=== PATIENT | male | born 1955 | race Caucasian/White ===

== ENCOUNTER 2020-09-24 14:17 | Emergency (ER) | payer BC ==
[2020-09-24 14:30] VITALS: BP 135/69
[2020-09-24] MEDS ORDERED: ASPIRIN CHEW 81 MG TABLET PO STA (14:39)
--- NOTE | 2020-09-24 14:46 | XRAY Report ---
PROCEDURE: Chest 1 View X-Ray INDICATIONS: Chest pain TECHNIQUE: One view of the chest was acquired. COMPARISON: None. FINDINGS: Surgical changes and devices: None. Lungs and pleura: No pleural effusions or pneumothorax. Lungs are clear. Mediastinum: Mediastinal contours appear normal. Heart size is normal. Bones and chest wall: No suspicious bony lesions. Overlying soft tissues appear unremarkable. IMPRESSION: No acute cardiopulmonary pathology. Reviewed by: Luisito Heredia MD on 09/24/2020 2:45 PM PDT Approved by: Luisito Heredia MD on 09/24/2020 2:45 PM PDT Station ID: [id number]
--- NOTE | 2020-09-24 14:49 | ED Physician Documentation ---
PD HPI CHEST PAIN - Stated complaint Stated Complaint: CHEST DISCOMFORT,JAW PX - Chief complaint Chief Complaint: Cardiac - History obtained from History obtained from: Patient - Additional information Additional information: 65-year-old gentleman with no known history of heart heart problems save for a "moderate" calcium score a few years ago. For the last 5 days has had fairly constant right upper chest pain "like a gas bubble." That does not seem to change with positioning and it does get slightly better albeit very briefly with drinking something cold. Today he noticed what he thought was very mild jaw pain "like a toothache." There is no associated trouble breathing, pedal edema, calf pain, sweats, nausea, dizziness. Review of Systems Ten Systems: 10 systems reviewed and negative Constitutional: denies: Chills, Fatigue Ears: denies: Loss of hearing, Ear pain Nose: denies: Rhinorrhea / runny nose, Congestion PD PAST MEDICAL HISTORY - Present Medications Home Medications: Ambulatory Orders Medication Instructions Recorded Confirmed Ferrous Sulfate [Slow Fe] 142 mg PO BID 09/24/20 09/24/20 Finasteride [Proscar] 5 mg PO DAILY 09/24/20 09/24/20 Ibuprofen [Motrin] 1 tablet PO Q8H PRN 09/24/20 09/24/20 Levocetirizine Dihydrochloride 5 mg PO DAILY 09/24/20 09/24/20 [Xyzal] Lisinopril [Zestril] 2.5 mg PO DAILY 09/24/20 09/24/20 Montelukast [Singulair] 10 mg PO QPM 09/24/20 09/24/20 Pnv No.95/Ferrous Fum/Folic AC 1 each PO DAILY 09/24/20 09/24/20 [ Caplet] Tamsulosin HCl [Flomax] 0.4 mg PO DAILY 09/24/20 09/24/20 Vit A/Vit C/Vit E/Zinc/Copper 1 each PO BID 09/24/20 09/24/20 [Preservision Areds Softgel] Zolpidem Tartrate [Ambien] 10 mg PO DAILY PM 09/24/20 09/24/20 - Allergies Allergies/Adverse Reactions: Allergies Allergy/AdvReac Type Severity Reaction Status Date / Time No Known Drug Allergies Allergy Verified 09/24/20 14:30 PD ED PE NORMAL - Vitals Vital signs reviewed: Yes - General General: Alert and oriented X 3, No acute distress - HEENT HEENT: PERRL, EOMI - Neck Neck: Supple, no meningeal sign, No bony TTP - Cardiac Cardiac: RRR, No murmur - Respiratory Respiratory: No respiratory distress, Clear bilaterally - Abdomen Abdomen: Normal bowel sounds, Soft, Non tender - Derm Derm: Warm and dry - Extremities Extremities: No edema, No calf tenderness / cord, Other (Right arm is absence from remote trauma) - Neuro Neuro: Alert and oriented X 3, Normal speech Results - Vitals Vitals: Vital Signs - 24 hr 09/24/20 14:27 Temperature 36.4 C L Heart Rate 54 L Respiratory 16 Rate Blood Pressure 135/69 H O2 Saturation 99 Oxygen O2 Source Room air - EKG (time done) 1422 Rate: Rate (enter#) (48) Rhythm: Sinus bradycardia [place]: Normal Intervals: Normal SD QRS: Normal Ischemia: Non specific changes (Very mild anterior ST elevation, submillimeter.). No: ST depression Computer interpretation: Agree with computer 1448 Rate: Rate (enter#) (48) Rhythm: Sinus bradycardia [place]: Normal Intervals: Normal SD QRS: Normal Ischemia: ST elevation c/w ischemia (anterior) Computer interpretation: Agree with computer - Labs Labs: Laboratory Tests 09/24/20 14:45 Nasal Adenovirus (PCR) NOT DETECTED Nasal B. parapertussis DNA (PCR) NOT DETECTED Nasal Coronavir 229E PCR NOT DETECTED Nasal Coronavir HKU1 PCR NOT DETECTED Nasal Coronavir NL63 PCR NOT DETECTED Nasal Coronavir OC43 PCR NOT DETECTED Nasal Enterovir/Rhinovir PCR NOT DETECTED Nasal Influenza B PCR NOT DETECTED Nasal Influenza A PCR NOT DETECTED Nasal Parainfluen 1 PCR NOT DETECTED Nasal Parainfluen 2 PCR NOT DETECTED Nasal Parainfluen 3 PCR NOT DETECTED Nasal Parainfluen 4 PCR NOT DETECTED Nasal RSV (PCR) NOT DETECTED Nasal B.pertussis DNA PCR NOT DETECTED Nasal C.pneumoniae (PCR) NOT DETECTED Dominik Human Metapneumo PCR NOT DETECTED Nasal M.pneumoniae (PCR) NOT DETECTED Nasal SARS-CoV-2 (PCR) NOT DETECTED - Rads (name of study) 1v cxr Radiology: EMP read contemporaneously (NAD) Procedures - Central Line Central Line Preparation: Consent Obtained, Ultrasound used Central line location: Left IJ Central line type: Single lumen (18g angiocath) Central line aftercare: Pt tolerated well PD MEDICAL DECISION MAKING - ED course ED course: 65-year-old gentleman presents with chest pain that is mildly atypical. His initial EKG was nondiagnostic but somewhat concerning to me. Repeat EKG was done immediately after my first evaluation and shows significant dynamic changes that are concerning for developing anterior STEMI. Beta-blockade was held given his mild bradycardia. He was administered aspirin and heparin IV push 5000 units. STEMI code was called at the time of the second EKG, 1448. [facility] was activated and the patient was accepted by Dr. De Anda to [facility]. She asked me was also paged out and speak with the on-call senior informatica developer, Dr. Recinos and they were paged. I did also speak with Dr. Recinos at 3 PM; He is aware of the case and the ETA. Transport was delayed significantly by lack of IV access. Multiple nurses and flight nurses had tried and failed and they came to get me. I looked with ultrasound and then tried an EJ but eventually had to place a quick central line with a regular IV to expedite transport. - Critical Care Time(min): 40 Time Includes: Direct patient care, Review records, Reassess patient, Document care, Coordinate care, Medical consult, Family consult for tx dec Data interpretation: Labs, Pulse ox, CXR Procedures excluded from critical care time: EKG Departure - Departure Disposition: 02 Transfer Acute Care Hosp Clinical Impression: ST elevation myocardial infarction (STEMI) of anterior wall Condition: Critical Discharge Date/Time: 09/24/20 15:47
[2020-09-24] MEDS ORDERED: HEPARIN 5,000 UNIT/ML VIAL IVP STA (14:55)
[2020-09-24] MEDS ORDERED: NITROGLYCERIN 2% PASTE TOP STA (15:05)
[2020-09-24 16:10] LABS: B. PARAPERTUSSIS- RESP PCR PAN NOT DETECTED; B. PERTUSSIS- RESP PCR PANEL NOT DETECTED; C. PNEUMONIAE- RESP PCR PANEL NOT DETECTED; CORONAVIRUS 229E-RESP PCR NOT DETECTED; CORONAVIRUS HKU1-RESP PCR NOT DETECTED; CORONAVIRUS NL63-RESP PCR NOT DETECTED; CORONAVIRUS OC43-RESP PCR NOT DETECTED; HUMAN METAPNEUMOVIRUS NOT DETECTED; INFLUENZA A- RESP PCR PANEL NOT DETECTED; INFLUENZA B - RESP PCR PANEL NOT DETECTED; M. PNEUMONIAE- RESP PCR PANEL NOT DETECTED; PARAINFLUENZA VIRUS 1 NOT DETECTED; PARAINFLUENZA VIRUS 2 NOT DETECTED; PARAINFLUENZA VIRUS 3 NOT DETECTED; PARAINFLUENZA VIRUS 4 NOT DETECTED; RHINOVIRUS/ENTEROVIRUS NOT DETECTED; RSV- RESP PCR PANEL NOT DETECTED; SARS-CoV-2 -RESP PCR PANEL NOT DETECTED
== END 2020-09-24 15:47 | disposition short-term general hospital (02) ==
LOC: ED 14:17
DX: I21.09 ST elevation (STEMI) myocardial infarction involving other coronary artery of anterior wall (principal); R00.1 Bradycardia, unspecified; Z20.822 Contact with and (suspected) exposure to COVID-19
CPT/HCPCS: 0202U; 36556; 71045; 93005; 96374; 99285; 99291; A9270; 80053; 83690; 84484; 85025

== ENCOUNTER 2022-02-19 23:49 | Outpatient (CLI) | payer MEDICARE, OTHER | END 2022-02-19 23:59 | disposition EMS.NT | LOC: EMS 23:49 | DX: Z03.89 Encounter for observation for other suspected diseases and conditions ruled out (principal) ==

== ENCOUNTER 2023-01-08 02:53 | Outpatient (CLI) | payer MEDICARE | END 2023-01-08 02:54 | disposition EMS.NT | LOC: EMS 02:53 | DX: Z03.89 Encounter for observation for other suspected diseases and conditions ruled out (principal) ==

== ENCOUNTER 2023-02-10 00:07 | Outpatient (CLI) | payer MEDICARE | END 2023-02-10 23:59 | disposition EMS.NT | LOC: EMS 00:07 | DX: Z03.89 Encounter for observation for other suspected diseases and conditions ruled out (principal) ==

== ENCOUNTER 2023-02-28 02:03 | Outpatient (CLI) | payer MEDICARE | END 2023-02-28 02:04 | disposition EMS.NT | LOC: EMS 02:03 | DX: Z03.89 Encounter for observation for other suspected diseases and conditions ruled out (principal) ==

== ENCOUNTER 2023-09-21 23:56 | Outpatient (CLI) | payer MEDICARE | END 2023-09-21 23:59 | disposition EMS.NT | LOC: EMS 23:56 | DX: Z03.89 Encounter for observation for other suspected diseases and conditions ruled out (principal) ==

== ENCOUNTER 2023-10-20 00:27 | Outpatient (CLI) | payer MEDICARE | END 2023-10-20 00:28 | disposition left against medical advice (07) | LOC: EMS 00:27 | DX: Z03.89 Encounter for observation for other suspected diseases and conditions ruled out (principal); W18.2XXA Fall in (into) shower or empty bathtub, initial encounter; Y92.002 Bathroom of unspecified non-institutional (private) residence as the place of occurrence of the external cause ==

== ENCOUNTER 2023-11-16 23:33 | Outpatient (CLI) | payer MEDICARE | END 2023-11-16 23:34 | disposition EMS.NT | LOC: EMS 23:33 | DX: Z03.89 Encounter for observation for other suspected diseases and conditions ruled out (principal) ==